=== PATIENT | male | born 1940 | race Caucasian/White ===

== ENCOUNTER 2019-08-15 18:21 | Inpatient (IN) | payer MEDICARE, OTHER ==
[~2019-08-15] VITALS: Ht 165.1 cm; Wt 66.0 kg
[2019-08-15] MEDS ORDERED: LISI-662 PO (19:38)
[2019-08-15] MEDS ORDERED: DIABETES MED PO (19:38)
[2019-08-15 19:45] LABS: GLUCOSE,POINT OF CARE 106 MG/DL (70-110)
[2019-08-15 20:21] LABS: EOSINOPHILS % (AUTO) 2.6 % (1.0-6.0); HEMATOCRIT 44.2 % (41-53); HEMOGLOBIN 14.4 g/dL (13.5-17.5); LYMPHOCYTES # (AUTO) 0.8 K/uL (1.0-4.8); LYMPHOCYTES % (AUTO) 12.6 % (22.0-44.0); MEAN CORPUSCULAR HEMOGLOBIN 31.5 pg (26.0-34.0); MEAN CORPUSCULAR HGB CONC 32.7 G/dL (31.0-37.0); MEAN CORPUSCULAR VOLUME 96 fL (80-100); MONOCYTES # (AUTO) 0.6 K/uL (0.1-1.0); MONOCYTES % (AUTO) 9.5 % (2.0-9.0); NEUTROPHILS # (AUTO) 4.5 K/uL (1.8-7.7); NEUTROPHILS % (AUTO) 74.3 % (40.0-70.0); PLATELET COUNT (AUTO) 125 K/uL (150-450); RED BLOOD CELL COUNT(AUTO) 4.58 MIL/uL (4.50-5.90); RED CELL DISTRIBUTION WIDTH 13.1 % (11.5-14.5)
[2019-08-15 20:34] LABS: ANION GAP 6 mmol/L (8-16); CALCIUM, TOTAL 9.3 mg/dL (8.8-10.5); CARBON DIOXIDE 32 mmol/L (22-29); CHLORIDE 104 mmol/L (98-107); CREATININE 0.92 mg/dL (0.60-1.30); GLUCOSE,RANDOM 130 mg/dL (70-110); POTASSIUM 4.3 mmol/L (3.5-5.1); SODIUM SERUM 142 mmol/L (136-145); UREA NITROGEN, BLOOD 19 mg/dL (7-18)
[2019-08-15 20:35] LABS: GLOMERULAR FILTR. RATE CALC > 60 mL/min (>60)
[2019-08-15 20:40] LABS: ALANINE AMINOTRANSFERASE 32 U/L (12-78); ALBUMIN 4.1 g/dL (3.4-5.0); ALKALINE PHOSPHATASE 90 U/L (46-116); ASPARTATE AMINOTRANSFERASE 16 U/L (15-37); BILIRUBIN,TOTAL 0.5 mg/dL (0.1-1.0); TOTAL PROTEIN, SERUM 7.2 g/dL (6.4-8.2)
[2019-08-15 21:59] LABS: APPEARANCE,URINE CLEAR (CLEAR); BILIRUBIN,URINE NEGATIVE (NEGATIVE); GLUCOSE, URINE (UA) NEGATIVE (NEGATIVE); KETONES,URINE NEGATIVE (NEGATIVE); LEUKOCYTE ESTERASE ,URINE NEGATIVE (NEGATIVE); NITRATE,URINE NEGATIVE (NEGATIVE); OCCULT BLOOD,URINE NEGATIVE (NEGATIVE); PROTEIN,URINE NEGATIVE (NEGATIVE); UROBILINOGEN,URINE 0.2 mg/dL (<=1.0)
[2019-08-15 22:06] LABS: BACTERIA,URINE None Seen /HPF (None Seen); RBC,URINE None Seen /HPF (0-2); WBC,URINE 0-2 /HPF (0-5)
[2019-08-15 22:07] LABS: SQUAMOUS EPITHELIAL CELL,UR Few /LPF (None Seen)
[2019-08-15 22:10] LABS: AMPHET/METH SCREEN,URINE NEGATIVE (NEGATIVE); BARBITURATE SCREEN, URINE NEGATIVE (NEGATIVE); BENZODIAZEPINES SCREEN,URINE NEGATIVE (NEGATIVE); CANNABINOID SCREEN,URINE NEGATIVE (NEGATIVE); COCAINE SCREEN,URINE NEGATIVE (NEGATIVE); METHADONE SCREEN, URINE NEGATIVE (NEGATIVE); OPIATE SCREEN,URINE NEGATIVE (NEGATIVE)
[2019-08-15 22:12] LABS: PHENCYCLIDINE SCREEN,URINE NEGATIVE (NEGATIVE)
[2019-08-15] MEDS ORDERED: ACETAMINOPHEN 325 MG TABLET PO PRN ×2 (22:15→22:30)
[2019-08-15] MEDS ORDERED: ONDANSETRON HCL 4 MG/2 ML VIAL IVP PRN ×2 (22:15→22:30)
[2019-08-15] MEDS ORDERED: 0.9% SODIUM CHLORIDE 10 ML SYRINGE IVP PRN (22:15)
[2019-08-15] MEDS ORDERED: MAGNESIUM HYDROXIDE SUSPENSION 30 ML UDCUP PO PRN (22:30)
[2019-08-15] MEDS ORDERED: MORPHINE SULFATE 2 MG/ML SYRINGE IVP PRN (22:30)
[2019-08-15] MEDS ORDERED: BISACODYL 10 MG RECTAL RECTAL SUPPOSITORY PR PRN (22:30)
[2019-08-15] MEDS ORDERED: HYDROCODONE/ACETAMINOPHEN 5-325 MG TABLET PO PRN (22:30)
[2019-08-16] MEDS: HEPARIN SODIUM,PORCINE 5,000 UNITS/ML VIAL SQ SCH ×4 (00:11→23:35)
[2019-08-16 07:55] LABS: GLUCOSE,POINT OF CARE 79 MG/DL (70-110)
[2019-08-16 08:11] VITALS: BP 146/67
[2019-08-16 08:55] LABS: THYROID STIMULATING HORMONE 4.09 uIU/mL (0.36-3.74)
[2019-08-16] MEDS: DOCUSATE SODIUM 100 MG CAPSULE PO SCH ×2 (09:09→21:22)
[2019-08-16] MEDS: PANTOPRAZOLE SODIUM 40 MG DR TABLET PO SCH (09:09)
[2019-08-16] MEDS: LISINOPRIL 20 MG TABLET PO SCH (09:09)
[2019-08-16] MEDS ORDERED: INFLUENZA VIRUS VACCINE QVS 2019-20 (3YR+)/PF 60 MCG/0.5 ML SYRINGE IM ONE (10:30)
[2019-08-16 11:46] VITALS: BP 120/53
[2019-08-16 15:31] VITALS: BP 132/64
[2019-08-16 19:54] VITALS: BP 115/55
[2019-08-16] MEDS: DONEPEZIL HCL 5 MG TABLET PO SCH (21:22)
[2019-08-16 23:35] VITALS: BP 129/54
[2019-08-17] MEDS: ZOLPIDEM TARTRATE 5 MG TABLET PO PRN (01:34)
[2019-08-17 04:56] VITALS: BP 139/81
[2019-08-17 06:56] LABS: GLUCOMETER DEV NAME(LOC) 6N.1; GLUCOSE,POINT OF CARE 104 MG/DL (70-110)
[2019-08-17 07:13] VITALS: BP 124/76
[2019-08-17] MEDS: DOCUSATE SODIUM 100 MG CAPSULE PO SCH ×2 (08:01→20:51)
[2019-08-17] MEDS: PANTOPRAZOLE SODIUM 40 MG DR TABLET PO SCH (08:01)
[2019-08-17] MEDS: LISINOPRIL 20 MG TABLET PO SCH (08:01)
[2019-08-17] MEDS: HEPARIN SODIUM,PORCINE 5,000 UNITS/ML VIAL SQ SCH ×3 (08:01→23:21)
[2019-08-17 11:07] VITALS: BP 134/72
[2019-08-17 15:10] VITALS: BP 128/78
[2019-08-17 20:00] VITALS: BP 131/64
[2019-08-17] MEDS: DONEPEZIL HCL 5 MG TABLET PO SCH (20:51)
[2019-08-18] VITALS (7 sets, daily range): BP systolic 116–132; BP diastolic 53–89
[2019-08-18] MEDS: ZOLPIDEM TARTRATE 5 MG TABLET PO PRN (02:01)
[2019-08-18] MEDS: PANTOPRAZOLE SODIUM 40 MG DR TABLET PO SCH (08:04)
[2019-08-18] MEDS: DOCUSATE SODIUM 100 MG CAPSULE PO SCH ×2 (08:04→22:53)
[2019-08-18] MEDS: LISINOPRIL 20 MG TABLET PO SCH (08:04)
[2019-08-18] MEDS: HEPARIN SODIUM,PORCINE 5,000 UNITS/ML VIAL SQ SCH ×3 (08:04→22:53)
[2019-08-18] MEDS: DONEPEZIL HCL 5 MG TABLET PO SCH (22:53)
[2019-08-19 05:12] VITALS: BP 115/58
[2019-08-19 08:03] VITALS: BP 133/63
[2019-08-19] MEDS: PANTOPRAZOLE SODIUM 40 MG DR TABLET PO SCH (08:14)
[2019-08-19] MEDS: DOCUSATE SODIUM 100 MG CAPSULE PO SCH ×2 (08:14→21:18)
[2019-08-19] MEDS: HEPARIN SODIUM,PORCINE 5,000 UNITS/ML VIAL SQ SCH ×3 (08:14→23:56)
[2019-08-19] MEDS: LISINOPRIL 20 MG TABLET PO SCH (08:14)
[2019-08-19 11:09] VITALS: BP 105/57
[2019-08-19 17:40] VITALS: BP 114/54
[2019-08-19 19:26] VITALS: BP 119/63
[2019-08-19] MEDS: DONEPEZIL HCL 5 MG TABLET PO SCH (21:18)
[2019-08-20 00:04] VITALS: BP 135/63
[2019-08-20 03:54] VITALS: BP 135/71
[2019-08-20] MEDS: HEPARIN SODIUM,PORCINE 5,000 UNITS/ML VIAL SQ SCH ×2 (07:52→15:44)
[2019-08-20 08:04] VITALS: BP 132/74
[2019-08-20] MEDS: PANTOPRAZOLE SODIUM 40 MG DR TABLET PO SCH (08:17)
[2019-08-20] MEDS: DOCUSATE SODIUM 100 MG CAPSULE PO SCH ×2 (08:18→21:45)
[2019-08-20] MEDS: LISINOPRIL 20 MG TABLET PO SCH (08:18)
[2019-08-20 11:36] VITALS: BP 102/76
[2019-08-20 15:31] VITALS: BP 119/59
[2019-08-20 19:59] VITALS: BP 122/61
[2019-08-20] MEDS: DONEPEZIL HCL 5 MG TABLET PO SCH (21:45)
[2019-08-21 00:07] VITALS: BP 127/56
[2019-08-21 04:10] VITALS: BP 144/59
[2019-08-21 08:00] VITALS: BP 128/60
[2019-08-21] MEDS: DOCUSATE SODIUM 100 MG CAPSULE PO SCH (10:53)
[2019-08-21] MEDS: PANTOPRAZOLE SODIUM 40 MG DR TABLET PO SCH (10:54)
[2019-08-21] MEDS: LISINOPRIL 20 MG TABLET PO SCH (10:58)
== END 2019-08-21 14:05 | disposition home or self-care (01) | DRG 57 ==
LOC: EMS 18:24 → 6N 08-16 03:00 → 4E 08-16 03:00 → UNDOADMIN 08-16 03:00 → 6N 08-18 10:31
PROVIDERS: ADMIT Internal Medicine; ATTEND Internal Medicine
DX: G30.9 Alzheimer's disease, unspecified (principal); R62.7 Adult failure to thrive; F02.80 Dementia in other diseases classified elsewhere, unspecified severity, without behavioral disturbance, psychotic disturbance, mood disturbance, and anxiety; I10 Essential (primary) hypertension; E11.9 Type 2 diabetes mellitus without complications; Z68.24 Body mass index [BMI] 24.0-24.9, adult
CPT/HCPCS: 84443; 96374; G0378; G0480; J1644; J2405